=== PATIENT | male | born 1985 | race Caucasian/White ===

== ENCOUNTER 2018-10-03 17:20 | Emergency (ER) | payer OTHER ==
[2018-10-03] MEDS ORDERED: IBUPROFEN 800 MG TABLET PO STA (17:51)
[2018-10-03] MEDS ORDERED: CYCLOBENZAPRINE 10 MG TABLET PO STA (17:51)
--- NOTE | 2018-10-03 17:52 | ED Physician Documentation ---
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 Review of Systems Constitutional: denies: Fever, Chills Nose: denies: Rhinorrhea / runny nose, Congestion Throat: denies: Sore throat Respiratory: denies: Cough GI: denies: Nausea, Vomiting, Diarrhea Musculoskeletal: denies: Neck pain, Back pain Neurologic: denies: Headache PD PAST MEDICAL HISTORY - Past Medical History Past Medical History: No - Past Surgical History Past Surgical History: No - Present Medications Home Medications: Ambulatory Orders Medication Instructions Recorded Confirmed Cyclobenzaprine [Flexeril] 10 mg PO TID PRN #20 tablet 10/03/18 Ibuprofen [Motrin] 800 mg PO Q8H PRN #30 tablet 10/03/18 - Allergies Allergies/Adverse Reactions: Allergies Allergy/AdvReac Type Severity Reaction Status Date / Time anti-inflammatory starts Allergy Rash Uncoded 10/03/18 17:35 with "P" - Living Situation Living Situation: reports: With family Living Arrangement: reports: At home - Social History Does the pt smoke?: No Does the pt have substance abuse?: No - Family History Family history: reports: Non contributory - Immunizations Immunizations are current?: Yes PD ED PE NORMAL - Vitals Vital signs reviewed: Yes - General General: Alert and oriented X 3, No acute distress - HEENT HEENT: Moist mucous membranes - Neck Neck: Supple, no meningeal sign - Cardiac Cardiac: RRR - Respiratory Respiratory: No respiratory distress, Clear bilaterally - Back Back: No spinal TTP - Derm Derm: Warm and dry - Neuro Neuro: Alert and oriented X 3 - Free text exam Free text exam: Tender to palpation across the chest wall, mid to anterior axillary lines bilaterally. No crepitus. Results - Vitals Vitals: Vital Signs - 24 hr 10/03/18 10/03/18 17:31 19:57 Temperature 36 C L Heart Rate 69 66 Respiratory 18 16 Rate Blood Pressure 141/90 H 125/95 H O2 Saturation 100 97 Oxygen O2 Source Room air - Rads (name of study) Chest x-ray Radiology: Prelim report reviewed, EMP read contemporaneously, See rad report (Normal) PD MEDICAL DECISION MAKING - ED course Complexity details: reviewed results, re-evaluated patient, considered differential, d/w patient ED course: Normal rib x-ray. No pneumothorax. No rib contusion or fracture. Appears to be muscular strain. Will place on some NSAIDs and muscle relaxants and follow- up with his doctor. He is well-appearing, nontoxic. Patient counseled regarding signs and symptoms for which I believe and urgent re-evaluation would be necessary. Patient with good understanding of and agreement to plan and is comfortable going home at this time This document was made in part using voice recognition software. While efforts are made to proofread this document, sound alike and grammatical errors may occur. Departure - Departure Disposition: 01 Home, Self Care Clinical Impression: Strain of muscle of torso Qualifiers: Encounter type: initial encounter Qualified Code(s): S29.019A - Strain of muscle and tendon of unspecified wall of thorax, initial encounter Condition: Good Instructions: ED Strain Muscle Ext Follow-Up: HASMUKH FRANKEL [Primary Care Provider] - Within 1 week Prescriptions: Cyclobenzaprine [Flexeril] 10 mg PO TID PRN #20 tablet PRN Reason: Spasms Ibuprofen [Motrin] 800 mg PO Q8H PRN #30 tablet PRN Reason: PAIN &/OR FEVER Comments: Return if you worsen. You can use the Motrin and Flexeril as needed for pain. Her x-rays are normal. This should improve over the next few days. Do not drive or operate heavy machinery while taking the Flexeril Discharge Date/Time: 10/03/18 19:58
--- NOTE | 2018-10-03 19:46 | XRAY Report ---
Reason: B rib pain Procedure Date: 10/03/2018 Accession Number: [id number] / [id number] Procedure: XR - Ribs 3 View BILAT CPT Code: FULL RESULT: EXAM: BILATERAL RIB RADIOGRAPHY EXAM DATE: 10/03/2018 07:24 PM. CLINICAL HISTORY: Bilateral rib and flank pain. COMPARISON: None. TECHNIQUE: 2 views. FINDINGS: Bones: Normal. No fracture or bone lesion. Lungs: No focal opacities evident. No pneumothorax or pleural effusions. Mediastinum: Heart and cardiomediastinal contours are unremarkable. Other: None. IMPRESSION: Normal rib radiography. [facility]
[2018-10-03 19:58] VITALS: BP 125/95
== END 2018-10-03 19:58 | disposition home or self-care (01) ==
LOC: ED 17:20
DX: S29.011A Strain of muscle and tendon of front wall of thorax, initial encounter (principal); X50.0XXA Overexertion from strenuous movement or load, initial encounter; Y93.89 Activity, other specified; Y99.0 Civilian activity done for income or pay
CPT/HCPCS: 71110; 99283; A9270

== ENCOUNTER 2019-08-12 12:56 | Emergency (ER) | payer OTHER ==
[2019-08-12 13:07] VITALS: BP 149/101
[2019-08-12 13:37] LABS: RAPID STREP SCREEN Negative (Negative)
--- NOTE | 2019-08-12 14:25 | ED Physician Documentation ---
PD HPI PED ILLNESS - Stated complaint Stated Complaint: FEVER,CONGESTION, SORE THROAT - Chief complaint Chief Complaint: Fever - History obtained from History obtained from: Patient (This is a healthy 34-year-old gentleman who is active duty in the [employer]. He has been sick for 2 days with low-grade fevers up to 100, runny nose and nasal congestion and mild cough. Mostly here because he needs a work note. No recent travel.) Review of Systems Constitutional: reports: Fever. denies: Chills, Fatigue Ears: denies: Ear pain Nose: reports: Rhinorrhea / runny nose Throat: reports: Sore throat Respiratory: reports: Cough. denies: Dyspnea GI: denies: Vomiting, Diarrhea PD PAST MEDICAL HISTORY - Past Surgical History Past Surgical History: No - Present Medications Home Medications: Ambulatory Orders Medication Instructions Recorded Confirmed Cyclobenzaprine [Flexeril] 10 mg PO TID PRN #20 tablet 10/03/18 Ibuprofen [Motrin] 800 mg PO Q8H PRN #30 tablet 10/03/18 Guaifenesin/Pseudoephedrne HCl 1 each PO BID PRN #20 tab.er.12h 08/12/19 [Mucinex D ER 600-60 mg Tablet] - Allergies Allergies/Adverse Reactions: Allergies Allergy/AdvReac Type Severity Reaction Status Date / Time anti-inflammatory starts Allergy Rash Uncoded 10/03/18 17:35 with "P" - Social History Does the pt smoke?: No Smoking Status: Current some day smoker Does the pt drink ETOH?: No Does the pt have substance abuse?: No - Immunizations Immunizations are current?: Yes PD ED PE NORMAL - Vitals Vital signs reviewed: Yes - General General: Alert and oriented X 3, Other (Well-appearing gentleman in no distress) - HEENT HEENT: Pharynx benign, Other (Sniffling) - Neck Neck: Supple, no meningeal sign, No bony TTP - Cardiac Cardiac: RRR, No murmur - Respiratory Respiratory: No respiratory distress, Clear bilaterally - Abdomen Abdomen: Non tender - Back Back: No CVA TTP - Derm Derm: Normal color, Warm and dry - Neuro Neuro: Alert and oriented X 3, Normal speech Results - Vitals Vitals: Vital Signs - 24 hr 08/12/19 13:04 Temperature 36.9 C Heart Rate 84 Respiratory 18 Rate Blood Pressure 149/101 H O2 Saturation 96 Oxygen O2 Source Room air - Labs Labs: Laboratory Tests 08/12/19 08/12/19 13:09 13:09 Influenza A (Rapid) Negative Influenza B (Rapid) Negative Group A Strep Rapid Negative PD MEDICAL DECISION MAKING - ED course ED course: 34-year-old gentleman with nonspecific viral syndrome, flu and strep negative. Conservative care advised. Coronavirus is considered but specific testing is not merited given his young nontoxic and healthy status. Departure - Departure Disposition: 01 Home, Self Care Clinical Impression: Viral URI Condition: Good Record reviewed to determine appropriate education?: Yes Instructions: ED Viral Syndrome Prescriptions: Guaifenesin/Pseudoephedrne HCl [Mucinex D ER 600-60 mg Tablet] 1 each PO BID PRN #20 tab.er.12h PRN Reason: congestion Comments: Off of work through tomorrow, return for new or worsening symptoms Forms: Activity restrictions
== END 2019-08-12 14:26 | disposition home or self-care (01) ==
LOC: ED 12:56
DX: J06.9 Acute upper respiratory infection, unspecified (principal); B34.9 Viral infection, unspecified
CPT/HCPCS: 87070; 87275; 87276; 87430; 99283